=== PATIENT | male | born 2000 | race African-American/Black ===

== ENCOUNTER 2025-06-19 14:13 | Emergency (ER) | payer BC, SELFPAY ==
[2025-06-19] VITALS (12 sets, daily range): BP systolic 121–138; BP diastolic 75–90; PULSE 55–76; TEMP 36.8; O2SAT 99–100; BMI 23.7
--- NOTE | 2025-06-19 14:28 | ECG_ITS ---
[facility] Test Date: 2025-06-19 Pat Name: MARGUERITE AYALA Department: Room: - Gender: Male Lab Assistant: : 2000 Requested By: Order Number: [id number] Reading MD: IDA SIMON M.D. Measurements Intervals [place] Rate: 58 P: 47 OR: 174 QRS: 85 QRSD: 100 T: 73 QT: 406 QTc: 404 Interpretive Statements 1100 Sinus rhythm 9110 normal ECG No previous ECG available for comparison Electronically Signed On 06-19-2025 17:40:18 EDT by DIA SIMON M.D.
--- NOTE | 2025-06-19 14:28 | XR_ITS ---
The [address] [address] Patient Name: MARGUERITE AYALA MRN: [id number] date: 2000 Sex: M Assigned Patient Location: ER Current Patient Location: ED.MAIN Accession/Order Number: [id number] Exam Date: 06/19/2025 14:50 Report Date: 06/19/2025 16:14 At the request of: JENNIFER EM Procedure: XR chest 1V PA CHEST: CLINICAL HISTORY: chest pain COMPARISON: None Unremarkable cardiomediastinal. Lungs are clear. No effusion or pneumothorax. IMPRESSION: Negative acute pleural-parenchymal disease. Impression dictated by: Enrique Jacobo M.D. 06/19/2025 4:14 PM Dictation Location: [place] [address] Electronically authenticated by: [id number] Y Date: 06/19/2025 16:14
--- NOTE | 2025-06-19 14:30 | ED_ITS ---
HPI HPI - General Adult General Chief complaint: Chest Pain Stated complaint: CHEST TIGHTNESS, SHORTNESS OF BREATH Time Seen by Provider: 06/19/25 14:18 Source: patient Mode of arrival: walk-in History of Present Illness HPI narrative: Patient presents to the emergency department with complaints of generalized chest pain described as a tight sensation with associated shortness of breath. Patient states that the symptoms began last night and progressively worsened throughout the course of the evening and into today. Patient tried taking Tylenol without improvement. Patient denies any radiation of pain into the back. No associated abdominal pain. Denies any recent URI symptoms. Patient states he quit smoking approximately 1 week ago and then restarted 2 days prior. Patient denies any trauma. No fevers or chills. Denies any hemoptysis Onset (ago): day(s) (1) Location: Reports chest Quality: Reports other Pain Consistency: Reports constant Relieving factors: Reports none Exacerbating factors: Reports other (deep breath) Associated symptoms: Reports shortness of breath Treatments prior to arrival: Reports other (tylenol) Related Data Previous Rx's ?Medication ?Instructions ?Recorded etodolac 400 mg tablet (Lodine) 400 mg PO Q12H PRN maida n #14 tabs 06/19/25 methylprednisolone 4 mg tablets in 4 mg PO DAILY #21 e a 06/19/25 a dose pack (Medrol (Ray)) Allergies Allergy/AdvReac Type Severity Reaction Status Date / Time No Known Drug Allergies Allergy Verified 06/19/25 14:22 Review of Systems ROS Status of ROS 10 or more systems reviewed and unremark able except as noted in history and below Constitutional Denies: fever or chills Ears, nose, mouth, and throat Denies: throat pain Cardiovascular Reports: chest pain; Denies: palpitations or edema Respiratory Reports: shortness of breath and pain on inspiration; Denies: cough or wheezing Gastrointestinal Denies: vomiting Musculoskeletal Denies: back pain PFSH PFSH Social History Little interest or pleasure in doing things: not at all Feeling down, depressed, or hopeless: not at all Exam Constitutional Vital Signs, click to edit/add: Last Vital Signs Temp 98.3 F 06/19/25 14:18 Pulse 58 L 06/19/25 15:39 Resp 14 06/19/25 15:39 BP 121/75 06/19/25 15:39 Pulse Ox 100 06/19/25 15:39 O2 Del Method Room Air 06/19/25 15:39 Documenting provider has reviewed patient's vital signs: yes Common normals: no apparent distress, average body habitus, oriented x3, no limitations and healthy appearing Chest Common normals: inspection of chest normal and palpation of chest normal Respiratory Common normals: normal respiratory effort, no use of accessory muscles and clear to auscultation bilaterally Cardio Common normals: regular rate, regular rhythm, S1 normal heart sound and S2 normal heart sound GI Common normals: Normal to inspection, nondistended, normoactive bowel sounds present Course Vital Signs Vital signs: Vital Signs Temperature 98.3 F 06/19/25 14:18 Pulse Rate 58 L 06/19/25 14:18 Respiratory Rate 18 06/19/25 14:18 Blood Pressure 138/90 06/19/25 14:18 Pulse Oximetry 100 06/19/25 14:18 Oxygen Delivery Method Room Air 06/19/25 14:18 Temperature 98.3 F 06/19/25 14:18 Pulse Rate 58 L 06/19/25 15:39 Respiratory Rate 14 06/19/25 15:39 Blood Pressure 121/75 06/19/25 15:39 Pulse Oximetry 100 06/19/25 15:39 Oxygen Delivery Method Room Air 06/19/25 15:39 Medical Decision Making MDM Narrative Medical decision making narrative: Patient is an otherwise healthy 25-year-old male who presents emergency department with pleuritic chest tightness and shortness of breath that began last night. Patient had laboratory testing, EKG and x-ray performed. X-ray shows no obvious infiltrates or lung collapse. EKG is a sinus bradycardia with no ischemic changes. D-dimer is negative and this is not a presentation of PE t ulysses. Given the pleuritic nature of pain I discussed the possibility of costochondritis versus pleurisy with the patient. Advised on smoking cessation. Advised to follow-up with PCP Differential Diagnosis Differential Diagnosis: Differential diagnosis included ACS, PE, costochondritis, pneumonia, pneumo Lab Data Lab results reviewed: Yes I reviewed the patient's lab results Lab results narrative: Negative troponin, negative D-dimer, normal white count, no transaminitis Labs: Lab Results 06/19/25 Range/Units 14:35 WBC 6.4 (4.0-11.0) 10^3/uL RBC 5.32 (4.70-6.10) 10^6/uL Hgb 16.9 (14.0-18.0) g/dL Hct 46.2 (42.0-54.0) % MCV 86.8 (80.0-94.0) fL MCH 31.8 (25.9-34.0) pg MCHC 36.6 H (29.9-35.2) g/dL RDW 11.2 (11.0-15.0) % Plt Count 207 (150-450) 10^3/uL MPV 8.8 L (9.5-13.5) fL Neut % (Auto) 49.1 (43.0-75.0) % Lymph % (Auto) 39.3 (20.5-60.0) % [place] % (Auto) 8.8 (1.7-12.0) % Eos % (Auto) 2.0 (0.9-7.0) % Baso % (Auto) 0.6 (0.2-2.0) % Neut # (Auto) 3.1 (1.4-6.5) 10^3/uL Lymph # (Auto) 2.5 (1.2-3.8) 10^3/uL [place] # (Auto) 0.6 (0.3-0.8) 10^3/uL Eos # (Auto) 0.1 (0.0-0.7) 10^3/uL Baso # (Auto) 0.0 (0.0-0.1) 10^3/uL Abs Immat Gran (auto) 0.01 (0.00-0.03) 10^3/uL Imm/Tot Granulo (auto) 0.2 (0.0-0.5) % PT 11.2 (9.0-11.6) sec INR 1.06 D-Dimer <0.19 (<=0.59) mg/L FEU Sodium 143 (136-145) mmol/L Potassium 3.7 (3.5-5.1) mmol/L Chloride 105 (98-107) mmol/L Carbon Dioxide 28.2 (21.0-32.0) mmol/L Anion Gap 13.5 BUN 8.0 (7.0-18.0) mg/dL Creatinine 1.01 (0.70-1.30) mg/dL Est GFR ( Amer) >60 (>=60 mL/min/1.73m^2) Est GFR (Non-Af Amer) >60 (>=60 mL/min/1.73m^2) BUN/Creatinine Ratio 7.9 Glucose 91 (74-106) mg/dL Calcium 8.8 (8.5-10.1) mg/dL Total Bilirubin 0.7 (0.2-1.0) mg/dL AST 14 L (15-37) U/L ALT 16 (16-63) U/L Alkaline Phosphatase 56 (46-116) U/L Troponin I High Sens 11.1 (4.0-76.1) pg/mL Total Protein 7.6 (6.4-8.2) g/dL Albumin 4.2 (3.4-5.0) g/dL Globulin 3.4 g/dL Albumin/Globulin Ratio 1.2 ECG Data Attestation: I personally reviewed and interpreted this ECG as follows: (Sinus bradycardia, rate 58 bpm, normal axis, QTc of 404 ms) Prior ECG tracings: not available for review Smoking Cessation Time spent discussing smoking cessation with patient: 3 to 10 minutes Patient Acknowledges Need for Cessation: Yes Discharge Plan Discharge Stand Alone Forms: Work/School Release Chief Complaint: Chest Pain Clinical Impression: Acute costochondritis Patient Disposition: Home, Self-Care Time of Disposition Decision: 15:25 Condition: Good Mode of Transportation: Private Vehicle Prescriptions / Home Meds: New etodolac [Lodine] 400 mg tablet 400 mg PO Q12H PRN (Reason: pain) Qty: 14 0RF methylprednisolone [Medrol (Ray)] 4 mg tablets,dose pack 4 mg PO DAILY Qty: 21 0RF Rx Instructions: Take per pack instructions Print Language: Croatian Instructions: Costochondritis (ED) Referrals: Physician,Non-Staff, MD [Primary Care Provider] - 1 week Discharge Date/Time: 06/19/25 15:39
[2025-06-19 14:43] LABS: Hematocrit 46.2 % (42.0-54.0); Hemoglobin 16.9 g/dL (14.0-18.0); Immature Granulocytes Abs Auto 0.01 10^3/uL (0.00-0.03); Immature Granulocytes Pct Auto 0.2 % (0.0-0.5); Lymphocytes Absolute Auto 2.5 10^3/uL (1.2-3.8); Mean Corpuscular HGB Conc 36.6 g/dL (29.9-35.2); Mean Corpuscular Hemoglobin 31.8 pg (25.9-34.0); Mean Corpuscular Volume 86.8 fL (80.0-94.0); Platelet Count 207 10^3/uL (150-450); Red Blood Count 5.32 10^6/uL (4.70-6.10); White Blood Count 6.4 10^3/uL (4.0-11.0)
[2025-06-19] MEDS: KETOROLAC TROMETHAMINE 30 MG/ML VIAL IVP (14:45)
[2025-06-19] MEDS: METHYLPREDNISOLONE SOD SUCC PF 125 MG/2 ML VIAL IVP (14:45)
[2025-06-19] MEDS: 0.9 % SODIUM CHLORIDE 1,000 ML 1000 ML IV (14:45)
[2025-06-19 15:02] LABS: INR 1.06; Prothrombin Time 11.2 sec (9.0-11.6)
[2025-06-19 15:03] LABS: Alanine Aminotransferase 16 U/L (16-63); Albumin Globulin Ratio 1.2; Albumin Level 4.2 g/dL (3.4-5.0); Alkaline Phosphatase 56 U/L (46-116); Anion Gap 13.5; Aspartate Amino Transferase 14 U/L (15-37); Blood Urea Nitrogen 8.0 mg/dL (7.0-18.0); Calcium 8.8 mg/dL (8.5-10.1); Carbon Dioxide 28.2 mmol/L (21.0-32.0); Chloride 105 mmol/L (98-107); Estimated GFR (African America >60 (>=60 mL/min/1.73m^2); Estimated GFR (Non-African Ame >60 (>=60 mL/min/1.73m^2); Globulin 3.4 g/dL; Glucose 91 mg/dL (74-106); Potassium 3.7 mmol/L (3.5-5.1); Sodium 143 mmol/L (136-145); Total Protein 7.6 g/dL (6.4-8.2)
== END 2025-06-19 15:39 | disposition home or self-care (01) ==
PROVIDERS: Physician Assistant; Emergency Provider Student in an Organized Health Care Education/Training Program
DX: M94.0 Chondrocostal junction syndrome [Tietze] (principal); F17.200 Nicotine dependence, unspecified, uncomplicated
CPT/HCPCS: 36415; 71045; 80053; 80307; 84484; 85025; 85378; 85610; 93005; 96374; 96375; 99284; 99285; J1885; J2919